=== PATIENT | male | born 1960 | race Caucasian/White ===

== ENCOUNTER 2018-01-22 08:25 | Inpatient (IN) | payer MEDICAID, OTHER ==
[2018-01-22] MEDS: VANCOMYCIN 1 GM 250 ML IVPB (01:30)
[2018-01-22 08:40] LABS: ADD MAN DIFF? NO
[2018-01-22 08:42] LABS: WHITE BLOOD COUNT 6.5 10^3/ul (4.8-10.8)
[2018-01-22 08:42] LABS: BASOPHIL # 0.1 10^3/ul (0.0-0.1); BASOPHILS % 0.9 % (0.0-2.0); EOSINOPHILS # 0.3 10^3/ul (0.0-0.5); HEMATOCRIT 41.7 % (42.0-52.0); HEMOGLOBIN 13.5 g/dl (14.0-18.0); LYMPHOCYTES # 0.8 10^3/ul (0.8-2.9); LYMPHOCYTES % 12.3 % (15.0-51.0); MEAN CORPUSCULAR HEMOGLOBIN 31.3 pg (29.0-33.0); MEAN CORPUSCULAR HGB CONC 32.4 g/dl (32.0-37.0); MEAN CORPUSCULAR VOLUME 96.5 fl (82.0-101.0); MONOCYTE # 0.5 10^3/ul (0.3-0.9); MONOCYTES % 7.7 % (0.0-11.0); NEUTROPHIL # 4.9 10^3/ul (1.6-7.5); NEUTROPHILS % 74.8 % (39.0-77.0); PLATELET COUNT 173 10^3/UL (140-415); RED BLOOD COUNT 4.32 10^6/ul (4.70-6.10); RED CELL DISTRIBUTION WIDTH 14.5 % (11.5-14.5)
[2018-01-22 09:01] LABS: INR 1.23; PROTIME 15.7 Sec (11.9-14.9); PT RATIO 1.2
[2018-01-22 09:02] LABS: PARTIAL THROMBOPLASTIN TIME 32.5 Sec (25.0-35.0)
[2018-01-22 09:07] LABS: ALANINE AMINOTRANSFERASE 19 IU/L (13-69); ALBUMIN/GLOBULIN RATIO 0.95; ALKALINE PHOSPHATASE 82 IU/L (42-121); ANION GAP 22 (8-16); ASPARTATE AMINO TRANSFERASE 35 IU/L (15-46); BILIRUBIN,INDIRECT 0.2 mg/dl (0-1.1); BILIRUBIN,TOTAL 0.2 mg/dl (0.2-1.3); BLOOD UREA NITROGEN 33 mg/dl (7-20); CALCIUM 9.2 mg/dl (8.4-10.2); CARBON DIOXIDE 27 mmol/L (21-31); CHLORIDE 98 mmol/L (97-110); CREATININE 7.36 mg/dl (0.61-1.24); GLUCOSE 73 mg/dl (70-220); MAGNESIUM 2.5 mg/dl (1.7-2.5); POTASSIUM 5.7 mmol/L (3.5-5.1); SODIUM 141 mmol/L (135-144); TOTAL PROTEIN 8.2 g/dl (6.1-8.1)
[2018-01-22] MEDS ORDERED: DEXTROSE 50% 50 ML SYRINGE IV ×3 (09:30→12:30)
[2018-01-22] MEDS: ASPIRIN 325 MG TAB PO (09:33)
[2018-01-22] MEDS: DILTIAZEM 25 MG INJ IV ×5 (09:35→22:45)
[2018-01-22] MEDS ORDERED: ACETAMINOPHEN 325 MG TAB PO ×2 (10:30→11:30)
[2018-01-22] MEDS ORDERED: ONDANSETRON 4 MG INJ IV (10:30)
[2018-01-22] MEDS: INSULIN REGULAR, HUMAN 100 UNIT/1 ML 3ML VIAL IVP (10:39)
[2018-01-22] MEDS: DEXTROSE 50% 50 ML SYRINGE IV (10:39)
[2018-01-22] MEDS ORDERED: NACL 0.9% 3 ML SYG IV (11:30)
[2018-01-22] MEDS ORDERED: GLUCOSE GEL 15 GRAM TUBE PO ×2 (12:30)
[2018-01-22] MEDS ORDERED: GLUCAGON 1 MG INJ IM (12:30)
[2018-01-22] MEDS ORDERED: GLUCOSE GEL 15 GRAM TUBE BUCCAL (12:30)
[2018-01-22 12:46] LABS: FREE T4 (FREE THYROXINE) 1.61 ng/dl (0.64-1.79)
[2018-01-22 12:54] LABS: HEMOGLOBIN A1C 5.4 % (0-5.9)
[2018-01-22] MEDS ORDERED: ALBUMIN HUMAN 25% 50 ML IV (13:30)
[2018-01-22] MEDS: HEPARIN 5,000 UNIT/0.5 ML VIAL SC (14:11)
[2018-01-22 15:08] LABS: CREATINE KINASE 89 IU/L (23-200)
[2018-01-22 15:08] LABS: HEPATITIS B SURFACE ANTIGEN NEGATIVE (NEGATIVE)
[2018-01-22 15:20] LABS: CK-MB 4.49 ng/ml (0.0-2.4)
[2018-01-22 15:21] LABS: TROPONIN-I 0.385 ng/ml (0.000-0.120)
[2018-01-22] MEDS: INSULIN ASPART [NOVOLOG] 3 ML PEN SC ×2 (18:00→19:56)
[2018-01-22] MEDS: DIGOXIN 500 MCG INJ IV (19:56)
[2018-01-22] MEDS: METOPROLOL 5 MG INJ IV (20:19)
[2018-01-22] MEDS: TAMSULOSIN (SR) 0.4 MG CAP PO (20:26)
[2018-01-22] MEDS: APIXABAN 5 MG TABLET PO (20:26)
[2018-01-22] MEDS ORDERED: DILTIAZEM (CD) 120 MG CAP PO (21:00)
[2018-01-22] MEDS: PROPRANOLOL 20 MG TAB PO (21:00)
[2018-01-22 21:02] LABS: ADD MAN DIFF? NO
[2018-01-22 21:03] LABS: ABNORMAL IP MESSAGE 1; BASOPHILS % 0.4 % (0.0-2.0); EOSINOPHILS # 0.1 10^3/ul (0.0-0.5); EOSINOPHILS % 1.1 % (0.0-7.0); HEMATOCRIT 41.5 % (42.0-52.0); HEMOGLOBIN 13.6 g/dl (14.0-18.0); LYMPHOCYTES # 0.4 10^3/ul (0.8-2.9); LYMPHOCYTES % 4.2 % (15.0-51.0); MEAN CORPUSCULAR HEMOGLOBIN 31.4 pg (29.0-33.0); MEAN CORPUSCULAR HGB CONC 32.8 g/dl (32.0-37.0); MEAN CORPUSCULAR VOLUME 95.8 fl (82.0-101.0); MEAN PLATELET VOLUME 9.4 fl (7.4-10.4); MONOCYTE # 0.2 10^3/ul (0.3-0.9); MONOCYTES % 1.8 % (0.0-11.0); NEUTROPHIL # 9.2 10^3/ul (1.6-7.5); NEUTROPHILS % 92.3 % (39.0-77.0); PLATELET COUNT 161 10^3/UL (140-415); POSITIVE DIFF @See below; RED BLOOD COUNT 4.33 10^6/ul (4.70-6.10); RED CELL DISTRIBUTION WIDTH 14.2 % (11.5-14.5)
[2018-01-22 21:21] LABS: ANION GAP 19 (8-16); BLOOD UREA NITROGEN 21 mg/dl (7-20); CARBON DIOXIDE 28 mmol/L (21-31); CHLORIDE 96 mmol/L (97-110); CREATINE KINASE 97 IU/L (23-200); CREATININE 5.48 mg/dl (0.61-1.24); GLUCOSE 81 mg/dl (70-220); POTASSIUM 4.8 mmol/L (3.5-5.1); SODIUM 138 mmol/L (135-144)
[2018-01-22 21:33] LABS: LACTIC ACID 2.2 mmol/L (0.5-2.0)
[2018-01-22 21:35] LABS: CK INDEX 4.5; CK-MB 4.41 ng/ml (0.0-2.4)
[2018-01-22 21:37] LABS: TROPONIN-I 0.398 ng/ml (0.000-0.120)
[2018-01-22] MEDS ORDERED: VANCOMYCIN IV PER PHARMACY XX (22:30)
[2018-01-22] MEDS: DILTIAZEM 125 MG in DEXTROSE 5% 100 ML IVPB (23:05)
[2018-01-22] MEDS: LEVOFLOXACIN 750MG/D5W (PMX) 150 ML IVPB (23:30)
[2018-01-22] MEDS: ALBUTEROL/IPRATROPIUM (NEB) 3 ML AMP HHN (23:51)
[2018-01-23 01:30] LABS: LACTIC ACID 1.6 mmol/L (0.5-2.0)
[2018-01-23] MEDS: HYDROCODONE/APAP (5/325) TAB PO ×3 (02:39→23:36)
[2018-01-23 06:18] LABS: ADD MAN DIFF? NO
[2018-01-23 06:23] LABS: ABNORMAL IP MESSAGE 1; BASOPHILS % 0.2 % (0.0-2.0); EOSINOPHILS % 0.3 % (0.0-7.0); HEMATOCRIT 36.5 % (42.0-52.0); HEMOGLOBIN 11.8 g/dl (14.0-18.0); LYMPHOCYTES # 0.5 10^3/ul (0.8-2.9); MEAN CORPUSCULAR HGB CONC 32.3 g/dl (32.0-37.0); MEAN CORPUSCULAR VOLUME 95.8 fl (82.0-101.0); MEAN PLATELET VOLUME 9.6 fl (7.4-10.4); MONOCYTE # 0.5 10^3/ul (0.3-0.9); MONOCYTES % 3.9 % (0.0-11.0); NEUTROPHIL # 11.5 10^3/ul (1.6-7.5); PLATELET COUNT 134 10^3/UL (140-415); POSITIVE DIFF @See below; RED BLOOD COUNT 3.81 10^6/ul (4.70-6.10); RED CELL DISTRIBUTION WIDTH 14.4 % (11.5-14.5)
[2018-01-23 06:23] LABS: WHITE BLOOD COUNT 12.6 10^3/ul (4.8-10.8)
[2018-01-23 06:58] LABS: CHOLESTEROL 89 mg/dl (100-200)
[2018-01-23 06:58] LABS: CHOL/HDL RATIO 2.8 RATIO; HDL CHOLESTEROL 31 mg/dl (30-78); LDL CHOLESTEROL,CALCULATED 41 mg/dl; TRIGLYCERIDES 84 mg/dl (0-149)
[2018-01-23] MEDS: FUROSEMIDE 40 MG INJ IV (07:00)
[2018-01-23 07:02] LABS: ANION GAP 17 (8-16); BLOOD UREA NITROGEN 25 mg/dl (7-20); CALCIUM 8.5 mg/dl (8.4-10.2); CARBON DIOXIDE 27 mmol/L (21-31); CHLORIDE 96 mmol/L (97-110); CREATINE KINASE 154 IU/L (23-200); CREATININE 5.95 mg/dl (0.61-1.24); GLUCOSE 65 mg/dl (70-220); POTASSIUM 5.1 mmol/L (3.5-5.1); SODIUM 135 mmol/L (135-144)
[2018-01-23 07:11] LABS: TROPONIN-I 0.729 ng/ml (0.000-0.120)
[2018-01-23 07:13] LABS: CK INDEX 2.1; CK-MB 3.26 ng/ml (0.0-2.4)
[2018-01-23 07:24] LABS: PHOSPHORUS 5.3 mg/dl (2.5-4.9)
[2018-01-23 07:24] LABS: MAGNESIUM 2.1 mg/dl (1.7-2.5)
[2018-01-23] MEDS: INSULIN ASPART [NOVOLOG] 3 ML PEN SC ×4 (08:00→21:00)
[2018-01-23] MEDS: ASPIRIN 81 MG TAB PO (08:08)
[2018-01-23] MEDS: PROPRANOLOL 20 MG TAB PO ×3 (08:09→21:11)
[2018-01-23] MEDS: APIXABAN 5 MG TABLET PO ×2 (08:09→21:11)
[2018-01-23] MEDS ORDERED: VANCOMYCIN IV PER PHARMACY XX (09:00)
[2018-01-23] MEDS: DOCUSATE SODIUM 250 MG CAP PO (12:09)
[2018-01-23] MEDS: GABAPENTIN 100 MG CAP PO ×2 (12:09→21:11)
[2018-01-23] MEDS: DIGOXIN 500 MCG INJ IV (16:40)
[2018-01-23] MEDS: SEVELAMER CARBONATE 0.8 GM PKT GTB (17:16)
[2018-01-23] MEDS: TAMSULOSIN (SR) 0.4 MG CAP PO (21:11)
[2018-01-24 05:39] LABS: ADD MAN DIFF? NO
[2018-01-24 05:45] LABS: WHITE BLOOD COUNT 8.5 10^3/ul (4.8-10.8)
[2018-01-24 05:45] LABS: BASOPHILS % 0.4 % (0.0-2.0); EOSINOPHILS # 0.3 10^3/ul (0.0-0.5); EOSINOPHILS % 3.3 % (0.0-7.0); HEMATOCRIT 38.6 % (42.0-52.0); HEMOGLOBIN 12.6 g/dl (14.0-18.0); LYMPHOCYTES # 0.9 10^3/ul (0.8-2.9); LYMPHOCYTES % 10.5 % (15.0-51.0); MEAN CORPUSCULAR HGB CONC 32.6 g/dl (32.0-37.0); MEAN CORPUSCULAR VOLUME 95.1 fl (82.0-101.0); MEAN PLATELET VOLUME 9.7 fl (7.4-10.4); MONOCYTE # 0.6 10^3/ul (0.3-0.9); MONOCYTES % 7.1 % (0.0-11.0); NEUTROPHIL # 6.7 10^3/ul (1.6-7.5); NEUTROPHILS % 78.6 % (39.0-77.0); PLATELET COUNT 156 10^3/UL (140-415); RED BLOOD COUNT 4.06 10^6/ul (4.70-6.10)
[2018-01-24 06:12] LABS: ANION GAP 17 (8-16); BLOOD UREA NITROGEN 38 mg/dl (7-20); CALCIUM 8.2 mg/dl (8.4-10.2); CARBON DIOXIDE 26 mmol/L (21-31); CHLORIDE 96 mmol/L (97-110); CREATININE 7.23 mg/dl (0.61-1.24); GLUCOSE 83 mg/dl (70-220); MAGNESIUM 2.2 mg/dl (1.7-2.5); POTASSIUM 5.5 mmol/L (3.5-5.1); SODIUM 133 mmol/L (135-144)
[2018-01-24] MEDS ORDERED: ALBUMIN HUMAN 25% 50 ML IV (07:00)
[2018-01-24] MEDS ORDERED: SODIUM CHLORIDE 0.9% 1L BAG IV (07:00)
[2018-01-24] MEDS ORDERED: HEPARIN 1000 UNITS/ML 10 ML INJ CATHETER (07:00)
[2018-01-24] MEDS: INSULIN ASPART [NOVOLOG] 3 ML PEN SC ×4 (07:50→20:52)
[2018-01-24] MEDS: DOCUSATE SODIUM 250 MG CAP PO (07:51)
[2018-01-24] MEDS: APIXABAN 5 MG TABLET PO ×2 (07:51→20:51)
[2018-01-24] MEDS: SEVELAMER CARBONATE 0.8 GM PKT GTB ×3 (07:51→17:03)
[2018-01-24] MEDS: PROPRANOLOL 20 MG TAB PO ×3 (07:51→20:51)
[2018-01-24] MEDS: GABAPENTIN 100 MG CAP PO ×3 (07:52→20:51)
[2018-01-24] MEDS: ASPIRIN 81 MG TAB PO (07:52)
[2018-01-24 11:13] LABS: VANCOMYCIN,RANDOM 12.1 ug/ml
[2018-01-24] MEDS: ONDANSETRON 4 MG INJ IV (12:05)
[2018-01-24] MEDS: VANCOMYCIN 750 MG in SOD CHLORIDE 0.9% 150 ML IVPB (17:02)
[2018-01-24] MEDS: TAMSULOSIN (SR) 0.4 MG CAP PO (20:51)
[2018-01-24] MEDS ORDERED: LEVOFLOXACIN 500MG/D5W (PMX) 100 ML IVPB (23:00)
[2018-01-25] MEDS: HYDROCODONE/APAP (5/325) TAB PO (00:13)
[2018-01-25 06:03] LABS: ADD MAN DIFF? NO
[2018-01-25 06:05] LABS: BASOPHILS % 0.4 % (0.0-2.0); EOSINOPHILS # 0.2 10^3/ul (0.0-0.5); EOSINOPHILS % 3.4 % (0.0-7.0); HEMATOCRIT 38.1 % (42.0-52.0); HEMOGLOBIN 12.2 g/dl (14.0-18.0); LYMPHOCYTES # 0.9 10^3/ul (0.8-2.9); LYMPHOCYTES % 12.8 % (15.0-51.0); MEAN CORPUSCULAR HEMOGLOBIN 30.7 pg (29.0-33.0); MEAN CORPUSCULAR VOLUME 95.7 fl (82.0-101.0); MEAN PLATELET VOLUME 9.2 fl (7.4-10.4); MONOCYTE # 0.7 10^3/ul (0.3-0.9); MONOCYTES % 9.8 % (0.0-11.0); NEUTROPHIL # 5.2 10^3/ul (1.6-7.5); NEUTROPHILS % 73.3 % (39.0-77.0); PLATELET COUNT 160 10^3/UL (140-415); RED BLOOD COUNT 3.98 10^6/ul (4.70-6.10); RED CELL DISTRIBUTION WIDTH 13.9 % (11.5-14.5)
[2018-01-25 06:32] LABS: DIGOXIN 0.6 ng/ml (1.0-2.0)
[2018-01-25 06:34] LABS: ALANINE AMINOTRANSFERASE 18 IU/L (13-69); ALBUMIN 3.1 g/dl (3.3-4.9); ALBUMIN/GLOBULIN RATIO 0.77; ALKALINE PHOSPHATASE 71 IU/L (42-121); ANION GAP 14 (8-16); ASPARTATE AMINO TRANSFERASE 30 IU/L (15-46); BILIRUBIN,INDIRECT 0.1 mg/dl (0-1.1); BILIRUBIN,TOTAL 0.1 mg/dl (0.2-1.3); BLOOD UREA NITROGEN 28 mg/dl (7-20); CARBON DIOXIDE 31 mmol/L (21-31); CHLORIDE 95 mmol/L (97-110); CREATININE 5.21 mg/dl (0.61-1.24); GLUCOSE 107 mg/dl (70-220); POTASSIUM 4.7 mmol/L (3.5-5.1); SODIUM 135 mmol/L (135-144); TOTAL PROTEIN 7.1 g/dl (6.1-8.1)
[2018-01-25] MEDS: INSULIN ASPART [NOVOLOG] 3 ML PEN SC ×4 (08:00→21:00)
[2018-01-25] MEDS: ASPIRIN 81 MG TAB PO (08:45)
[2018-01-25] MEDS: DOCUSATE SODIUM 250 MG CAP PO (08:47)
[2018-01-25] MEDS: GABAPENTIN 100 MG CAP PO ×2 (08:47→12:34)
[2018-01-25] MEDS: APIXABAN 5 MG TABLET PO ×2 (08:47→21:16)
[2018-01-25] MEDS: SEVELAMER CARBONATE 0.8 GM PKT GTB ×4 (08:47→17:42)
[2018-01-25] MEDS: PROPRANOLOL 20 MG TAB PO ×3 (08:48→21:21)
[2018-01-25 13:50] LABS: AMMONIA < 9 umol/l (9-30)
[2018-01-25] MEDS ORDERED: ALBUMIN HUMAN 25% 50 ML IV (17:30)
[2018-01-25] MEDS: TAMSULOSIN (SR) 0.4 MG CAP PO (21:16)
[2018-01-26 06:24] LABS: ADD MAN DIFF? NO
[2018-01-26 06:25] LABS: WHITE BLOOD COUNT 7.4 10^3/ul (4.8-10.8)
[2018-01-26 06:25] LABS: BASOPHILS % 0.4 % (0.0-2.0); EOSINOPHILS # 0.3 10^3/ul (0.0-0.5); EOSINOPHILS % 4.6 % (0.0-7.0); HEMOGLOBIN 12.6 g/dl (14.0-18.0); LYMPHOCYTES # 1.1 10^3/ul (0.8-2.9); LYMPHOCYTES % 14.7 % (15.0-51.0); MEAN CORPUSCULAR HEMOGLOBIN 30.1 pg (29.0-33.0); MEAN CORPUSCULAR HGB CONC 32.3 g/dl (32.0-37.0); MEAN CORPUSCULAR VOLUME 93.1 fl (82.0-101.0); MEAN PLATELET VOLUME 9.2 fl (7.4-10.4); MONOCYTE # 0.6 10^3/ul (0.3-0.9); MONOCYTES % 7.9 % (0.0-11.0); NEUTROPHIL # 5.3 10^3/ul (1.6-7.5); NEUTROPHILS % 72.3 % (39.0-77.0); PLATELET COUNT 180 10^3/UL (140-415); RED BLOOD COUNT 4.19 10^6/ul (4.70-6.10); RED CELL DISTRIBUTION WIDTH 13.9 % (11.5-14.5)
[2018-01-26 07:18] LABS: ANION GAP 16 (8-16); BLOOD UREA NITROGEN 40 mg/dl (7-20); CALCIUM 8.5 mg/dl (8.4-10.2); CARBON DIOXIDE 26 mmol/L (21-31); CHLORIDE 96 mmol/L (97-110); CREATININE 6.09 mg/dl (0.61-1.24); GLUCOSE 94 mg/dl (70-220); POTASSIUM 4.7 mmol/L (3.5-5.1); SODIUM 133 mmol/L (135-144)
[2018-01-26] MEDS: INSULIN ASPART [NOVOLOG] 3 ML PEN SC ×3 (08:00→17:35)
[2018-01-26] MEDS: DOCUSATE SODIUM 250 MG CAP PO (08:08)
[2018-01-26] MEDS: SEVELAMER CARBONATE 0.8 GM PKT GTB ×2 (08:08→11:55)
[2018-01-26] MEDS: ASPIRIN 81 MG TAB PO (08:08)
[2018-01-26] MEDS: PROPRANOLOL 20 MG TAB PO ×2 (08:09→11:55)
[2018-01-26] MEDS: APIXABAN 5 MG TABLET PO (08:09)
[2018-01-26] MEDS: ARIPIPRAZOLE 2 MG TAB PO (11:55)
== END 2018-01-26 20:27 | disposition home or self-care (01) | DRG 871 ==
LOC: 6WM 01-25 20:36 → E/R 08:25 → 6WM 10:20
PROC: 5A1D70Z Performance of Urinary Filtration, Intermittent, Less than 6 Hours Per Day (ICD-10-PCS; 2018-01-22)
PROC: 5A1D70Z Performance of Urinary Filtration, Intermittent, Less than 6 Hours Per Day (ICD-10-PCS; 2018-01-24)
PROC: 5A1D70Z Performance of Urinary Filtration, Intermittent, Less than 6 Hours Per Day (ICD-10-PCS; principal; 2018-01-25)
DX: A41.9 Sepsis, unspecified organism (principal); I21.A1 Myocardial infarction type 2; N18.6 End stage renal disease; J18.9 Pneumonia, unspecified organism; I12.0 Hypertensive chronic kidney disease with stage 5 chronic kidney disease or end stage renal disease; I13.2 Hypertensive heart and chronic kidney disease with heart failure and with stage 5 chronic kidney disease, or end stage renal disease; E11.22 Type 2 diabetes mellitus with diabetic chronic kidney disease; D69.6 Thrombocytopenia, unspecified; I27.20 Pulmonary hypertension, unspecified; I50.9 Heart failure, unspecified; I48.0 Paroxysmal atrial fibrillation; E87.5 Hyperkalemia; B18.2 Chronic viral hepatitis C; N40.0 Benign prostatic hyperplasia without lower urinary tract symptoms; D63.1 Anemia in chronic kidney disease; Z99.2 Dependence on renal dialysis; Z79.4 Long term (current) use of insulin; Z79.82 Long term (current) use of aspirin
CPT/HCPCS: 36415; 71045; 78582; 80048; 80053; 80061; 80162; 80202; 82140; 82550; 82553; 82962; 83036; 83605; 83735; 84100; 84439; 84443; 84484; 85025; 85610; 85730; 87040; 87070; 87340; 90935; 93005; 93306; 93970; 94664; 96374; 99291-25